=== PATIENT | male | born 1930 | race Asian ===

== ENCOUNTER 2021-05-01 10:05 | Emergency (ER) | payer OTHER, SELFPAY ==
[~2021-05-01] VITALS: Ht 162.6 cm; Wt 59.0 kg
[2021-05-01 10:07] VITALS: BP_SYST 137
--- NOTE | 2021-05-01 10:07 | NUR ---
Placed in room 2 . Placed on cardiac rehabilitation program director, blood pressure machine and pulse oximeter. To gown for exam. Side rails up. Report given to EPHRAIM TOLEDO.
--- NOTE | 2021-05-01 10:15 | NUR ---
Pt. thierno BLS from home with c/o pain to mid back 11/20, fell 6 days ago while attempting to lift a box of water bottles and fell on his back, he said the pain has not improved and is actually a little worse
--- NOTE | 2021-05-01 10:20 | NUR ---
ER at bedside examining patient.
[2021-05-01] MEDS ORDERED: MORPHINE SULFATE 10 MG/ML VIAL IM ONE (10:30)
[2021-05-01] MEDS ORDERED: ONDANSETRON 4 MG ODT TAB PO ONE (10:30)
--- NOTE | 2021-05-01 11:15 | NUR ---
pt. returned from radiology
--- NOTE | 2021-05-01 11:43 | NUR ---
FAMILY CONTACT Prema Marshall (DAUGHTER) [phone]
--- NOTE | 2021-05-01 12:09 | NUR ---
spoke with pts. family in regards to ride home
[2021-05-01] MEDS ORDERED: HYDR-3917 PO (12:16)
[2021-05-01 12:55] VITALS: BP_SYST 109
--- NOTE | 2021-05-01 12:56 | NUR ---
Patient and daughter given written and verbal discharge instructions and verbalizes understanding. ER Dr. Loza discussed with patient the results and treatment provided. Patient in stable condition. ID arm band removed. Rx of [place] given. Patient educated on pain management and to follow up with PMD. Pain Scale 5. Opportunity for questions provided and answered. Medication side effect fact sheet provided.
--- NOTE | 2021-05-01 13:00 | NUR ---
Patient given written and verbal discharge instructions and verbalizes understanding. SHAILESH PORTILLO MD discussed with patient the results and treatment provided. Patient in stable condition. ID arm band removed. Rx of HYDROCODONE given. Patient educated on pain management and to follow up with PMD. Pain Scale 3. Opportunity for questions provided and answered. Medication side effect fact sheet provided.
== END 2021-05-01 13:00 | disposition home or self-care (01) ==
LOC: EDBD 10:05 → SED 10:05
DX: M54.50 Low back pain, unspecified (principal); Z79.899 Other long term (current) drug therapy
CPT/HCPCS: 72100; 96372; 99283; J2270; Q0162